=== PATIENT | female | born 1990 ===

== ENCOUNTER 2020-02-02 15:21 | Emergency (ER) | payer OTHER ==
[2020-02-03 12:24] LABS: SARS-CoV-2 MS2 Positive; SARS-CoV-2 N Gene Negative; SARS-CoV-2 S Gene Negative; SARS-CoV-2 orf1ab Negative
== END 2020-02-02 15:55 | disposition home or self-care (01) ==
LOC: ERS 15:21
DX: Z20.828 Contact with and (suspected) exposure to other viral communicable diseases (principal)
CPT/HCPCS: 87635; 99283; U0003

== ENCOUNTER 2020-08-28 18:09 | Emergency (ER) | payer OTHER ==
[2020-08-29 02:23] LABS: SARS-CoV-2 MS2 Positive; SARS-CoV-2 N Gene Negative; SARS-CoV-2 S Gene Negative; SARS-CoV-2 by NAA Not Detected (NotDetected); SARS-CoV-2 orf1ab Negative
== END 2020-08-28 18:30 | disposition home or self-care (01) ==
LOC: ERS 18:09
DX: R51.9 Headache, unspecified (principal); Z20.822 Contact with and (suspected) exposure to COVID-19
CPT/HCPCS: 87635; 99283; U0003